=== PATIENT | male | born 1960 | race Hispanic/Latino ===

== ENCOUNTER 2016-10-30 09:05 | Emergency (ER) | payer OTHER ==
[~2016-10-30] VITALS: Ht 167.6 cm; Wt 73.2 kg
[~2016-10-30 09:05] MED LIST: CYCL10TA9 PO; METO10TA3 PO; NOMED; PANT40TA2 PO; PROT40T PO
[2016-10-30 09:11] VITALS: BP 160/97; PULSE 84; RESP 20; O2SAT 98
--- NOTE | 2016-10-30 09:12 | ED.REPORT ---
HPI-Chest Pain 40 and Over Date of Service Oct 30, 2016 ED Provider: Dr. Hatch Pt is a 56 y/o male w/ a hx of HTN, anxiety, TIA, presenting to the ED via EMS c /o intermittent substernal chest burning/pressure onset 2 days ago. 2 hours ago this morning, the patient was laying in bed and his chest pressure began. It was a 10/10 at time of onset and is 7/10 now. The patient went to Urgent Care and was transferred here to the ED after getting 1 sublingual nitro and 4x baby ASA. He reports the nitro may have relieved his pressure somewhat. The pain is not exacerbated by anything. He c/o associated diaphoresis, lightheadedness, 1 episode of rapid palpitations 2 days ago. Pt denies SOB, fevers, chills, cough, rash, edema, constipation, nausea, vomiting, diarrhea. He smokes about 1 pack per week and has 5-6 drinks each day and does not experience withdrawals. He has no history of cardiac disease. The patient takes no medications and has not seen his PCP Dr. Robledo in many months. He was seen in the ED 05/06/16 with complaints of burning non-radiating chest pain, diaphoresis, and palpitations. His labs including troponin and EKG were normal at that time. Nursing Notes Stated Complaint: CHEST PAIN Chief Complaint: Dysrhythmia/Cardiac Nursing Notes Reviewed: Yes Allergies: Coded Allergies: ibuprofen (Verified Allergy, Unknown, 10/30/15) oxycodone (Verified Allergy, Unknown, Nausea,Vomiting, 06/15/14) Scheduled Omeprazole (Omeprazole) 20 Mg Capsule. 20 MG PO DAILY Pantoprazole DR (Protonix) 40 Mg Tablet 40 MG PO BID Pantoprazole-Expunged Drug, Do Not Renew! (Protonix-Expunged Drug, Do Not Renew! ) 40 Mg Tablet.dr 40 MG PO 0730 Scheduled PRN Cyclobenzaprine (Cyclobenzaprine) 10 Mg Tablet 10 MG PO TID PRN PRN Spasm Metoclopramide (Metoclopramide) 10 Mg Tablet 10 MG PO QID PRN PRN For Nausea Miscellaneous Medications No Historical Medication (No Historical Medication) Ea General Time Seen by MD: 09:11 Chief Complaint Chest pressure Hx Obtained From: Patient, EMS Arrived By: Ambulance Sudden in Onset?: Yes Onset Occurred: 2 days ago Symptom Duration: Intermittent Location: : Substernal Quality: Burning, Pressure Radiation: : Does not radiate Migration/Movement: Reports: None Severity: Current: Moderate Severity: Maximum: Severe Past Medical History Past Medical History TIA Anxiety Vertigo H. Pylori GI bleed recurrent HTN Alcohol abuse PUD Past Surgical History Upper endoscopy Family History Noncontributory Smoking History Former Smoker Social History Alcohol Use: >5 per day Drug Use: Denies drug use Ambulatory Status Independent Review of Systems Constitutional: Denies: Chills, Fever Respiratory: Denies: Non-productive cough, Shortness of breath Cardiovascular: Reports: Chest pain, Palpitations, Denies: Edema GI: Denies: Abdominal pain, Nausea, Vomiting Skin: Reports Diaphoresis, Denies Rash Neurologic: Reports: Lightheaded, Denies: Headache Complete sys rev & neg: except as marked. Physical Exam Initial Vital Signs Vital Signs (First) Date Time Temp Pulse Resp B/P Pulse Ox O2 Delivery O2 Flow Rate FiO2 10/30/16 09:11 36.8 84 20 160/97 98 Room Air Initial VS: Reviewed Head / Eyes: Atraumatic, Normocephalic, PERRL ENT: Mucous membranes moist, Conjunctiva normal, No scleral icterus Neck: Supple, Full range of motion Extremities: Vascular intact, Neuro intact, No swelling, No tenderness Neurologic: Alert, Oriented, Nonfocal General/Constitutional: Awake, Alert, Cooperative, Not toxic appearing Distress / Hydration: Positive: Distress mild Appearance / Presentation: Positive: In pain, Uncomfortable Respiratory / Chest: Breath sounds NL, Breath sounds = bilat, No respiratory distress, No rales, No rhonchi, No wheezing, No retractions, No stridor Mild tachypnea Cardiovascular: Heart rate NL, Regular rhythm, Heart sounds NL, No gallop, No murmurs, No rubs, Cap refill not delayed, Peripheral circulation NL Abdomen: Atraumatic, Soft, Non-tender, No guarding, No rebound, No distention, No palpable mass Skin: Atraumatic, Color NL, No rash, Warm Color / Condition: Positive: Diaphoresis present (mild) Psychiatric: Cognitive function NL, Judgment/insight NL, Thought content NL Terrified affect Interpretation & Diagnostics Lab Results Interpretation Result Diagram: 10/30/1618 10/30/1618 Test 10/30/16 09:18 White Blood Count 8.4th/mm3 (3.8-10.1) Red Blood Count 4.77mil/mm3 (4.40-5.80) Hemoglobin 16.3g/dL (13.8-17.2) Hematocrit 48.0% (41.0-50.0) Mean Corpuscular Volume 100.6fL (81-100) Mean Corpuscular Hemoglobin 34.2pg (27.0-35.0) Mean Corpuscular Hemoglobin Concent 34.0% (32.0-37.0) Red Cell Distribution Width 12.8% (12.3-15.4) Platelet Count 224bil/L (150-400) Neutrophils (%) (Auto) 63.8% (40-74) Lymphocytes (%) (Auto) 27.2% (14-46) Monocytes (%) (Auto) 6.9% (4-12) Eosinophils (%) (Auto) 1.0% (0-5) Basophils (%) (Auto) 0.5% (0-3) Sodium Level 139mEq/L (134-144) Potassium Level 4.4mEq/L (3.5-5.2) Chloride Level 96mEq/L (97-108) Carbon Dioxide Level 22mmol/L (18-29) Blood Urea Nitrogen 7mg/dL (6-24) Creatinine 0.65mg/dL (0.76-1.27) Estimat Glomerular Filtration Rate 136mL/min (>59) Glucose Level 100mg/dL (60-99) Calcium Level 10.9mg/dL (8.5-10.1) Magnesium Level 1.8mg/dL (1.6-2.6) Total Bilirubin 0.5mg/dL (0.0-1.2) Aspartate Amino Transf (AST/SGOT) 178U/L (0-50) Alanine Aminotransferase (ALT/SGPT) 111U/L (0-44) Alkaline Phosphatase 102U/L (25-150) Troponin T 0.010ug/L (0.0-0.011) Total Protein 8.7g/dL (6.4-8.4) Albumin 4.8g/dL (3.4-5.0) Lipase 57U/L (13-60) ECG Interpretation Time: 09:19 Interpreted by: ED physician Normal ECG Interpretation: Normal ECG w/ rate of... (88), Normal rate, Normal sinus rhythm, No acute ischemic changes, Normal QRS, Normal axis, Normal intervals, Adequate tracing X-Ray Chest Interpretation Chest Xray Interpretation: IMPRESSION: 1. No acute cardiopulmonary disease. Dictated by: Wero Hermosillo M.D. on 10/30/2016 at 9:42 Approved by: Wero Hermosillo M.D. on 10/30/2016 at 9:42 View: Portable, 1 view Interpretation / Wet Read by: Interpret - Radiologist Re-Eval/Medical Decision Source of Hx: Old records, EMS Time of Eval: 11:17 Re-Evaluation/Progress Note: Pt rechecked. Burning decreased but still apparent. Sleeping comfortably. Informed pt of plan for treatment. Pt understands and agrees with plan for treatment. F/U instructions and RTER warnings given. All questions addressed. Counseled Regarding: Diagnosis, Lab results, Need for follow-up, When/why to return to ED Discharge & Departure Primary Impression: Non-cardiac chest pain Additional Impressions: Elevated liver function tests Hypertension Hypertension type: unspecified secondary hypertension Qualified Code: I15.9 - Secondary hypertension, unspecified Disposition: Home Discharge Condition All VS Reviewed: Yes Condition: Stable Patient Instructions: Chest Pain (ED) Additional Instructions: Your heart muscle lab tests, EKG, and chest x-ray were all normal. There was no sign of heart attack or pneumonia. Your liver function tests were somewhat elevated today and are likely related to alcohol consumption. I would recommend cutting back or stopping drinking alcohol altogether. Take Omeprazole once each day for 2 weeks. I recommend you not eat large meals and try not to eat right before bed. The cause of your pain is unclear at this moment but your symptoms are somewhat consistent with heartburn. Your blood pressure was elevated today. Take 1 or 2 blood pressure readings each day and keep track of these numbers to bring to Dr. Robledo. Follow-up with Dr. Robledo some time next week for a recheck. Return to the emergency department if you experience increased or persistent chest pain, profuse sweating, trouble breathing, persistent vomiting, high fever , or for other concerning symptoms. Referrals: Ryan Robledo MD (PCP) Scribe Attestation Portions of this note were transcribed by Brayan Levin. I, Dr. Hatch personally performed the history, physical exam and medical decision-making; I reviewed and confirmed the accuracy of the information in the transcribed note. Signed by Elijah Workman, 10/30/162129 copies to: Ryan Robledo MD,Kamala Jules MD Oct 30, 2016 09:12 BRAYAN LEVIN Oct 30, 2016 09:18
[2016-10-30 09:22] LABS: BASOPHILS % (AUTO) 0.5 % (0-3); MONOCYTES % (AUTO) 6.9 % (4-12); Mean Corpuscular Hemoglobin 34.2 pg (27.0-35.0); Mean Corpuscular Volume 100.6 fL (81-100); NEUTROPHILS % (AUTO) 63.8 % (40-74); Platelet Count 224 bil/L (150-400)
[2016-10-30] MEDS ORDERED: MeTOProlol 1 mg/mL 5 mL Inj IVPUSH PRN (09:25)
[2016-10-30] MEDS ORDERED: Pantoprazole 4 mg/mL 10 mL Inj IVPUSH ONE (09:25)
[2016-10-30 09:43] VITALS: BP 157/87
--- NOTE | 2016-10-30 09:43 | DRSVH ---
PROCEDURE: X-RAY CHEST ONE VIEW, PORTABLE ([id number]) INDICATIONS: Chest pain TECHNIQUE: One view of the chest was acquired. COMPARISON: [facility], CR, XR CHEST 1VW (PORTABLE), 05/06/2016, 19:45. FINDINGS: Surgical changes and devices: None. Lungs and pleura: No pleural effusions or pneumothorax. Lungs are clear. Mediastinum: Mediastinal contours appear normal. Heart size is normal. Bones and chest wall: No suspicious bony lesions. Overlying soft tissues appear unremarkable. IMPRESSION: 1. No acute cardiopulmonary disease. Dictated by: Wero Hermosillo M.D. on 10/30/2016 at 9:42 Approved by: Wero Hermosillo M.D. on 10/30/2016 at 9:42
[2016-10-30 09:44] LABS: TROPONIN T 0.01 ug/L (0.0-0.011)
[2016-10-30 09:47] VITALS: BP 159/82
[2016-10-30 09:55] VITALS: BP 150/77
[2016-10-30 09:56] LABS: Magnesium 1.8 mg/dL (1.6-2.6)
[2016-10-30 09:57] VITALS: BP 153/82
[2016-10-30] MEDS ORDERED: OMEP20CA11 PO (11:39)
[2016-10-30 11:49] VITALS: BP 139/76; PULSE 69; RESP 18; O2SAT 96
== END 2016-10-30 11:50 | disposition home or self-care (01) ==
LOC: EDBD 09:05 → EDUNIT# 09:05 → SED 09:05
DX: R07.89 Other chest pain (principal); R94.5 Abnormal results of liver function studies; I15.9 Secondary hypertension, unspecified; R61 Generalized hyperhidrosis; R42 Dizziness and giddiness; R00.2 Palpitations; F41.9 Anxiety disorder, unspecified; Z88.6 Allergy status to analgesic agent; Z88.5 Allergy status to narcotic agent; Z87.891 Personal history of nicotine dependence; Z86.73 Personal history of transient ischemic attack (TIA), and cerebral infarction without residual deficits
CPT/HCPCS: 36415; 71010; 80053; 83690; 83735; 84484; 85025; 93005; 96374; 96375; 99285; J2060